=== PATIENT | male | born 1995 | race Caucasian/White ===

== ENCOUNTER 2017-06-13 13:12 | Emergency (ER) | payer SELFPAY ==
[2017-06-13 13:13] VITALS: BP 163/84; PULSE 81; RESP 18; TEMP 36.3; O2SAT 98; BMI 35.2
[2017-06-13] MEDS: Ondansetron 8 MG Tablet PO (14:40)
--- NOTE | 2017-06-13 15:11 | ED.VISSUMM ---
- ER Visit Summary Date of Service: 06/13/17 Chief Complaint: [Nausea vomiting] History of Present Illness: The patient is a 22 M [who presents the emergency department with nausea and vomiting. It started at 4 AM in the morning. She had several episodes. He has had some loose stool but no diarrhea. His girlfriend and 2 other family members have similar illness. He denies any abdominal pain no fevers or chills no other associated symptoms.] Physical Examination: [] Blood pressure elevated 163/84 other vitals within normal limits WN WD NAD PERRL EOMI MMM NECK supple and nontender, no masses RRR no murmur rub or gallop, no peripheral edema, symmetric radial pulses CTAB no respiratory distress ABDOMEN is soft and nontender, normal bowel sounds, no distension, no rebound or guarding SKIN is warm and dry no rashes Alert and Oriented x3, CN II-XII in tact, no motor or sensory deficits, gait normal No lymphadenopathy Test Results: [] Emergency Department Course and Treatment: [Patient was given oral Zofran by his choice. He did not want an IV. He was feeling much better. He was tolerating fluids. He will be given a prescription for Zofran a work excuse for today and will follow up with a primary physician. He understands reasons for which to return to the emergency department] Treatment Plan: [] Disposition: [Discharge] Impression: [Vomiting] This note was generated with [employer] dictation software. It may contain incorrect words, spelling, and punctuation that were not noted in review of the chart prior to signing ED Disposition - Plan for ED Patient: Chief Complaint: Nausea/Vomiting Referrals: Care Physician,No Primary [Primary Care Provider] -
--- NOTE | 2017-06-13 15:14 | ED.DEP ---
ED Disposition - Plan for ED Patient: Chief Complaint: Nausea/Vomiting Instructions: ED Nausea Vomiting Prescriptions: Ondansetron [Zofran Odt] 4 mg PO Q8H PRN PRN #10 tablet PRN Reason: Nausea Referrals: Elvira Souza MD [STAFF PHYSICIAN] - 3-5 Days
[2017-06-13 15:24] VITALS: BP 137/82; PULSE 70; RESP 16; O2SAT 98
== END 2017-06-13 15:24 | disposition home or self-care (01) ==
LOC: ED 14:26
PROVIDERS: Emergency Provider Emergency Medicine
DX: R11.2 Nausea with vomiting, unspecified (principal)
CPT/HCPCS: 99283

== ENCOUNTER 2017-07-28 07:18 | Emergency (ER) | payer SELFPAY ==
[2017-07-28 07:20] VITALS: BP 132/88; PULSE 98; RESP 17; TEMP 37.1; O2SAT 98; BMI 38.2
--- NOTE | 2017-07-28 07:39 | ED.VISSUMM ---
- ER Visit Summary Date of Service: 07/28/17 Chief Complaint: Vomiting blood History of Present Illness: The patient is a 22 M with no primary care physician. He reports that he had 3 episodes of emesis yesterday. Reports that on each of these episodes there were multiple times that he threw up. States on the first episode he threw up once and there was no blood. The second time he vomited there was a small amount of bright red blood. The second and third episodes there was no blood. Reports that this morning he threw up once and there was a large amount of blood. States that he believes it would have filled his hands. Patient reports that he has a stabbing continuous left upper quadrant pain and 6 out of 10 at worst and 410 currently. Is worsened by nothing relieved by nothing. His last bowel movement yesterday. He denies any blood in his stools. No melena. Patient reports he had a similar episode last fall with a Suma-Llanos tear. Physical Examination: Vitals: Stable. Afebrile. General: Well-nourished and well-developed. Head: Normocephalic atraumatic. Neck: Supple, no lymphadenopathy. No JVD. Nontender. Cardiovascular: Regular rate and rhythm. No murmurs. Respiratory: No respiratory distress. Clear to auscultation bilaterally. Abdominal: Soft, nontender, nondistended, normal bowel sounds. No guarding, rebound, or peritoneal signs. Back: Nontender. Extremities: Nontender, no edema. Skin: Normal color, no rash. Neurologic: Alert and oriented ?3. Cranial nerves II through XII are intact. Normal strength and sensation. Psych: Normal affect. Test Results: CBC is remarkable for monocytes of 13. Chem-7 is marked for chloride of 109 calcium 8.4. Of note his BUN is 14. Coags are normal. Emergency Department Course and Treatment: Patient had an IV placed. He was given a liter of normal saline, Zofran, and Pepcid IV. He refused an NG tube. He is resting comfortably. He has had no vomiting while here. He is also had no diarrhea. Treatment Plan: Patient will be discharged with Zantac and Zofran. Instructed to [facility] in 3-5 days if not improving. Return to the emergency department for any worsening symptoms. Disposition: To home in improved and stable condition. Impression: 1. Suma-Llanos tear. 2. Vomiting. This note was generated with [employer] dictation software. It may contain incorrect words, spelling, and punctuation that were not noted in review of the chart prior to signing ED Disposition - Plan for ED Patient: Chief Complaint: GI Bleed Instructions: Suma-Llanos Tear Prescriptions: Ondansetron [Zofran Odt] 4 mg PO Q8H PRN PRN #10 tablet PRN Reason: Nausea Ranitidine [Zantac] 300 mg PO DAILY #30 tablet Referrals: Franchesca Freitas [NON-STAFF] - 3-5 Days if not improving
[2017-07-28] MEDS: 0.9% Normal Saline 1,000 ML 1000 ML IV (07:53)
[2017-07-28] MEDS: Ondansetron 4 MG/2 ML Vial IV (07:59)
[2017-07-28 08:02] LABS: Absolute Lymphocyte Count 1.34 X10^3/ul (0.83-4.51); Absolute Neutrophil Count 3.4 X10^3/uL (2.0-7.7); Basophil# 0.04 X10^3/uL; Basophil% 0.7 % (0-1); Eosinophil# 0.07 X10^3/uL; Eosinophils% 1.3 % (0-5); Hematocrit 46.5 % (40-54); Hemoglobin 16.3 g/dl (13.0-16.5); Lymphocyte # 1.34 X10^3/ul (4.0); Mean Corp Hgb Conc 35.1 g/gl (32-36); Mean Corpuscular Hgb 30.8 pg (27.0-32.0); Mean Corpuscular Volume 87.7 fL (80-94); Mean Platelet Vol. 9.9 fl (6.2-12.0); Monocyte# 0.73 X10^3/uL; Monocyte% 13.1 % (0-10); Neutrophil % 60.7 % (47-70); POSITIVE COUNT NO; POSITIVE DIFFERENTIAL NO; POSITIVE MORPHOLOGY NO; Platelet Count 182 K/mm3 (150-450); RBC Distribution Width CV 12.3 % (11.6-14.6); RBC Distribution Width SD 39.6 fl (35.1-43.9); White Blood Count 5.6 K/mm3 (4.4-11.0)
[2017-07-28 08:12] LABS: Anion Gap 7 (5-15); BUN 14 mg/dL (7-18); BUN/Creat Ratio 14.1 RATIO (10-20); Calcium,Total 8.4 mg/dL (8.5-10.1); Chloride 109 mmol/L (98-107); EST Glomerular Filtration Rate 98 mL/min (>60); Est Glom Filt Rate - Afr Amer 118 mL/min (>60); Estimated Creatinine Clearance 113.91 ml/min; Glucose 106 mg/dL (74-106); Potassium 3.8 mmol/L (3.5-5.1); Sodium Level 140 mmol/L (136-145)
[2017-07-28 08:13] LABS: Partial Thromboplast Time 29.2 Seconds (24.1-36.2); Prothrombin Time (Protime)PT. 13.5 SECONDS (11.7-14.9)
[2017-07-28 09:21] VITALS: BP 107/90; PULSE 76; RESP 16; O2SAT 99
== END 2017-07-28 09:22 | disposition home or self-care (01) ==
LOC: ED 08:09
PROVIDERS: Emergency Provider Emergency Medicine
DX: K22.6 Gastro-esophageal laceration-hemorrhage syndrome (principal); R11.10 Vomiting, unspecified
CPT/HCPCS: 80048; 85025; 85610; 85730; 96365; 96366; 96375; 99283; J7030; J2405; J3490

== ENCOUNTER 2017-07-29 14:15 | Emergency (ER) | payer SELFPAY ==
[2017-07-29 14:16] VITALS: BP 148/88; PULSE 69; RESP 18; TEMP 35.8; O2SAT 98; BMI 38.9
--- NOTE | 2017-07-29 15:10 | RAD_ITS ---
STUDY: X-RAY - ACUTE ABDOMINAL SERIES REASON FOR EXAM: Male, 22 years old. VOMITING, UNABLE TO KEEP ANYTHING DOWN TECHNIQUE: Single view of the chest. Supine, erect, and decubitus view(s) of the abdomen were obtained. COMPARISON: None. FINDINGS: The lungs are clear and expanded. Normal size heart. Normal mediastinum and shanel. Normal visualized pulmonary arteries. Normal visualized aortic arch and descending thoracic aorta. There is a non-specific bowel gas pattern. The soft tissue structures of the abdomen and pelvis are unremarkable. Normal visualized osseous structures. RAD/Acute Abdomen Inc Chest IMPRESSION: Normal x-ray examination of the chest, abdomen, and pelvis. Electronically Signed: Ammy Brown MD at 15:35 EDT Tel , Service support ,
--- NOTE | 2017-07-29 15:11 | ED.DCSUM_ITS ---
- ER Visit Summary Date of Service: 07/29/17 Chief Complaint: Vomiting History of Present Illness: The patient is a 22 M with no significant medical history presents to the emergency department one episode of vomiting. Patient was actually seen here yesterday. At that time, he was diagnosed with Suma- Llanos tear because he did have some blood with his emesis. He did have labs done which were unremarkable. He was treated symptomatically with Zofran. He states that yesterday morning when he got home, he began to eat normally. He states that he ate deviled eggs, a Pradip sandwich, and other things. When he woke this morning he was nauseated again and vomited. He was concerned because it seemed like everything that he ate yesterday came up in his emesis. He did move his bowels over the past 24 hours. He denies any history of inflammatory bowel disease. He states he did have a hernia repair at 2 years old, but no other abdominal surgery. He has no history of bowel obstruction. He states his nausea is actually better because he did take his Zofran. He has had resolution of his pain. Physical Examination: Vital signs reviewed General: Well-nourished, well-developed Head: Normocephalic, atraumatic Eyes: Pupils equal and reactive, extraocular muscles intact Neck, supple, no lymphadenopathy Heart: Regular rate and rhythm Respiratory: No distress, clear bilaterally Abdomen: Soft, nontender, nondistended, no peritoneal signs Back: Nontender Extremities: Nontender, no edema, no cords Skin: Normal color no rash Neuro: Alert and oriented, no focal or lateralizing deficits Test Results: [] Emergency Department Course and Treatment: The patient has a benign abdomen. I did obtain plain films. These are unremarkable. He has no evidence of obstruction. There is some increased stool burden. I am unsure if this is more of a slow transit process. Again, he has no tenderness. I am going to treat the patient with magnesium citrate and Colace. He will continue Zofran as needed. The patient will be discharged home, return with any worsening symptoms. Treatment Plan: [] Disposition: Discharge Impression: 1. Vomiting-resolved This note was generated with [employer] dictation software. It may contain incorrect words, spelling, and punctuation that were not noted in review of the chart prior to signing ED Disposition - Plan for ED Patient: Chief Complaint: Nausea/Vomiting Instructions: ED Nausea Vomiting Prescriptions: Docusate Sodium [Colace] 100 mg PO DAILY #20 cap Referrals: Care Physician,No Primary [Primary Care Provider] -
[2017-07-29] MEDS: Ondansetron ODT 4 MG Tablet PO (15:25)
[2017-07-29 15:59] VITALS: PULSE 90; RESP 14; O2SAT 97
== END 2017-07-29 16:00 | disposition home or self-care (01) ==
LOC: ED 15:07
PROVIDERS: Emergency Provider Emergency Medicine
DX: R11.2 Nausea with vomiting, unspecified (principal); K59.00 Constipation, unspecified
CPT/HCPCS: 74022; 99282

== ENCOUNTER 2018-03-26 16:41 | Emergency (ER) | payer MEDICAID, SELFPAY ==
[2018-03-26 16:41] VITALS: BMI 35.2
[2018-03-26 16:42] VITALS: BP 161/96; PULSE 81; RESP 18; TEMP 36.3; O2SAT 100; BMI 37.4
[2018-03-26 17:02] LABS: Bacteria 0 SEEN /hpf (None Seen); Mucous, Urine 0 SEEN /hpf (<or=2+); Red Blood Cells-Urine 0 SEEN /hpf (0-5); Squamous Epithelial Cells - UA 0 SEEN /hpf (0-5); White Blood Cells 0 SEEN /hpf (0-5)
[2018-03-26 17:07] LABS: Color, Urine Straw (Yellow); Glucose, Dipstick Normal (Normal); Ketone-Dipstick Negative (Negative); Leukocyte Esterase-Dipstick Negative /ul (Negative); Nitrite-Dipstick Negative (Negative); Occult Blood-Urine 50 /ul (Negative); Protein-Dipstick Negative (Negative); Specific Gravity, Urine 1.005 (1.002-1.030); Urine Bilirubin Dipstick Negative (Negative); Urine Clarity Clear (Clear); Urine Urobilinogen Normal (Normal)
--- NOTE | 2018-03-26 17:09 | ED.VISSUMM ---
- ER Visit Summary Date of Service: 03/26/18 Chief Complaint: Dysuria History of Present Illness: The patient is a 23 M who began having dysuria, frequency and urgency yesterday now he has some suprapubic pain. He has no back pain. No hematuria. He has no fever or chills. He denies any testicular pain. No pain with bowel movements. No rectal pain. Physical Examination: Not appear in acute distress. He is laying in bed comfortable. Moist mucous membranes, no obvious facial deformity No C-spine tenderness supple neck. Regular rate and rhythm without any obvious murmurs Clear lungs bilaterally speaking in full sentences without any obvious respiratory distress Abdomen soft with some suprapubic pain, no guarding or rebound. No CVA tenderness. Moves all extremities without any difficulty or pain. Skin does not show any obvious rashes or lesions, no trauma. Alert oriented ?3 with no gross focal deficit Emergency Department Course and Treatment: Patient is found to have a 3 mm right UVJ stone. He really did not require much analgesia in the ED I gave him Toradol. I will send him home with Naprosyn and Norflex. He is likely to pass this on his own I will refer him to urology since this is a second kidney stone. Discharge in stable condition Impression: Nephrolithiasis with colic This note was generated with [employer] dictation software. It may contain incorrect words, spelling, and punctuation that were not noted in review of the chart prior to signing ED Disposition - Plan for ED Patient: Disposition: Home or Assisted Living Chief Complaint: Complaint Instructions: Kidney Stone (Urine) Prescriptions: Naproxen [Naprosyn] 500 mg PO BID PRN #20 tab Tamsulosin HCl [Flomax] 0.4 mg PO DAILY #5 cap Referrals: Dong Blanco MD [STAFF PHYSICIAN] - 3-5 Days
[2018-03-26 17:12] VITALS: BP 140/89
--- NOTE | 2018-03-26 17:22 | CT_ITS ---
STUDY: CT ABDOMEN AND PELVIS WITHOUT CONTRAST REASON FOR EXAM: Male, 23 years old. Pain in the lower pelvic area with dysuria. History of multiple kidney stones. RADIATION DOSAGE (If Supplied By Facility): CTDIvol = ( 21.99 ) mGy, DLP = ( 1252.90 ) mGycm TECHNIQUE: Transaxial images were obtained from the dome of the diaphragm to the symphysis pubis without oral contrast, and without intravenous contrast. Sagittal and coronal images were reconstructed. Individualized dose optimization techniques were used for this CT. COMPARISON: CT abdomen and pelvis 11/06/2015 FINDINGS: Body wall soft tissues: No acute process. Osseous structures: No acute process. Inferior chest: Clear lung bases. Normal distal esophagus and cardiac base. Hepatobiliary: Normal liver, gallbladder, biliary tree and common duct. Pancreas: No acute process. Spleen: Normal. Adrenal glands: Normal. Urogenital: Normal left kidney with no retained calculi. Normal left collecting system and ureter. On the right, there are 2 tiny nonobstructing calyceal calculi, the largest measuring about 2 or 3 mm. There is minimal right hydronephrosis and hydroureter. There is a 3 mm calculus at the ureterovesical junction. Normal urinary bladder, prostate and seminal vesicles. Pelvic floor and sidewalls and retroperitoneum: No mass or adenopathy. Vasculature: No acute process. Stomach: No acute process. Small bowel and mesentery: No acute process. Large bowel: Normal appendix. Normal large bowel and rectum. Free fluid or free air: None. CT/Abdomen/Pelvis without Cont IMPRESSION: Acute urinary calculus passage on the right. There is a 3 mm calculus at the right ureterovesical junction. There are 2 tiny retained nonobstructing calyceal calculi of the right kidney. There are no observed calculi of the left kidney or ureter. Electronically Signed: Kennedy Hernandes, at 18:48 EST Tel , Service support ,
[2018-03-26 19:18] VITALS: BP 147/89; PULSE 75; RESP 16; O2SAT 97
[2018-03-26] MEDS: Ketorolac 30 MG/ML Syringe IM (19:19)
[2018-03-26] MEDS: HYDROcodone Bitartrate/Apap 5/325 Tablet PO (19:33)
[2018-03-26 19:38] VITALS: BP 155/97; PULSE 75; RESP 16; O2SAT 99
== END 2018-03-26 19:40 | disposition home or self-care (01) ==
PROVIDERS: Emergency Provider Emergency Medicine
DX: N20.0 Calculus of kidney (principal); R10.84 Generalized abdominal pain; Z87.442 Personal history of urinary calculi
CPT/HCPCS: 74176; 81001; 96372; 99282

== ENCOUNTER 2018-03-27 18:15 | Emergency (ER) | payer MEDICAID, SELFPAY ==
[2018-03-26 16:42] VITALS: BMI 37.4
[2018-03-27 18:16] VITALS: BP 140/89; PULSE 68; RESP 15; TEMP 36.4; O2SAT 98; BMI 37.1
--- NOTE | 2018-03-27 18:35 | ED.VISSUMM ---
- ER Visit Summary Date of Service: 03/27/18 Chief Complaint: Nausea and vomiting History of Present Illness: The patient is a 23 M who was seen in the ED last night for a kidney stone. Patient states he felt well when he went home last night, 8, and went to bed. He woke this morning with nausea and vomiting and this is persisted throughout the day. He states he does still have some flank pain but it is overall improved. The pain is moved in the right groin line down to the testicle and he believes he likely passed the stone. He denies diarrhea. He has not had fever or chills. Physical Examination: Vital signs are unremarkable. Patient is sitting upright in bed. He is in no acute distress. Head neck examination is unremarkable. Heart is regular rate and rhythm. Lung sounds are clear. Abdomen is soft and nontender. Hypoactive bowel sounds are noted throughout. Test Results: CBC reveals a white count of 13.2 with 76% neutrophils. Chemistry studies reveal a BUN of 24 and a creatinine of 1.84. There are no prior studies available for comparison. Emergency Department Course and Treatment: Patient was given IV fluids, Zofran, morphine. On repeat evaluation he feels significantly improved. He is tolerating ice chips. He is given a total of 2 L of fluid secondary to his elevation in creatinine. Patient be given a prescription for Zofran at home and he has pain meds were written for him last night. Treatment Plan: [] Disposition: Discharge Impression: Vomiting, improved This note was generated with [employer] dictation software. It may contain incorrect words, spelling, and punctuation that were not noted in review of the chart prior to signing ED Disposition - Plan for ED Patient: Chief Complaint: Nausea/Vomiting Referrals: Care Physician,No Primary [Primary Care Provider] -
[2018-03-27] MEDS: 0.9% Normal Saline 1,000 ML 1000 ML IV (18:45)
[2018-03-27] MEDS: Ondansetron 4 MG/2 ML Vial IV (18:45)
[2018-03-27 19:08] LABS: Absolute Neutrophil Count 10.1 X10^3/uL (2.0-7.7); Basophil# 0.03 X10^3/uL; Basophil% 0.2 % (0-1); Eosinophil# 0.06 X10^3/uL; Eosinophils% 0.5 % (0-5); Hematocrit 44.3 % (40-54); Hemoglobin 15.5 g/dl (13.0-16.5); Lymphocyte % 12.9 % (19-41); Mean Corpuscular Hgb 30.6 pg (27.0-32.0); Mean Corpuscular Volume 87.5 fL (80-94); Monocyte% 9.9 % (0-10); Neutrophil # 10.07 X10^3/uL (2.7-7.7); Neutrophil % 76.3 % (47-70); Platelet Count 201 K/mm3 (150-450); RBC Distribution Width CV 11.9 % (11.6-14.6); RBC Distribution Width SD 37.8 fl (35.1-43.9); Red Blood Count 5.06 M/mm3 (4.6-6.2); White Blood Count 13.2 K/mm3 (4.4-11.0)
[2018-03-27 19:09] LABS: POSITIVE COUNT NO; POSITIVE DIFFERENTIAL NO; POSITIVE MORPHOLOGY NO
[2018-03-27 19:11] LABS: Anion Gap 9 (5-15); BUN 24 mg/dL (7-18); Calcium,Total 8.8 mg/dL (8.5-10.1); Chloride 103 mmol/L (98-107); Creatinine, Serum 1.84 mg/dL (0.70-1.30); EST Glomerular Filtration Rate 48 mL/min (>60); Est Glom Filt Rate - Afr Amer 58 mL/min (>60); Estimated Creatinine Clearance 67.36 ml/min; Glucose 105 mg/dL (74-106); Potassium 3.7 mmol/L (3.5-5.1); Sodium Level 137 mmol/L (136-145)
[2018-03-27] MEDS: 0.9% Normal Saline 1,000 ML 999 ML IV (19:33)
[2018-03-27 19:43] VITALS: BP 155/94; PULSE 65; RESP 17; O2SAT 97
[2018-03-27] MEDS: Morphine 4 MG/ML Syringe IV (19:50)
--- NOTE | 2018-03-27 20:42 | ED.DEP ---
ED Disposition - Plan for ED Patient: Disposition: Home or Assisted Living Chief Complaint: Nausea/Vomiting Instructions: ED Nausea Vomiting Prescriptions: Ondansetron [Zofran Odt] 4 mg PO Q8H PRN PRN #10 tablet PRN Reason: Nausea Referrals: Boo Armstrong MD [STAFF PHYSICIAN] - As Needed
[2018-03-27 20:58] VITALS: BP 160/95; PULSE 67; RESP 17; O2SAT 98
--- NOTE | 2018-03-27 20:59 | ED.RN ---
pt given written and verbal discharge instructions and home going prescriptions. pt verbalizes understanding. pt educated not to drive for 6 hours after having morphine. pt reports his fiance's mom is coming to pick him up. pt iv d/c and covered with 2x2 gauze and paper tape. pt educated on the pharmacies that are currently open. pt denies any other questions.
== END 2018-03-27 21:02 | disposition home or self-care (01) ==
PROVIDERS: Emergency Provider Emergency Medicine
DX: R11.2 Nausea with vomiting, unspecified (principal); R10.31 Right lower quadrant pain; Z87.442 Personal history of urinary calculi
CPT/HCPCS: 80048; 85025; 96361; 96374; 96375; 99283; J7030; A4216; J2405

== ENCOUNTER 2018-11-15 01:17 | Emergency (ER) | payer OTHER, SELFPAY ==
[2018-11-15 01:18] VITALS: BP 148/78; PULSE 76; RESP 17; TEMP 36.9; O2SAT 97; BMI 37.5
--- NOTE | 2018-11-15 01:45 | ED.VISSUMM ---
- ER Visit Summary Date of Service: 11/15/18 Chief Complaint: Dental pain History of Present Illness: The patient is a 23 M who presents with dental pain. He complains of left-sided dental and facial pain which is progressed over the last 2 weeks. He does have a history of prior similar symptoms. He complains of pain from the base of his ear all the way down to below his jaw. He denies any fevers chest pain shortness of breath nausea vomiting. No jaw or facial swelling. Physical Examination: Afebrile vitals unremarkable Patient does have focal dental decay of the left mandibular second molar no focal abscess amenable to incision and drainage no facial or jaw swelling no trismus clear speech he does have tenderness on percussion of the left mandibular second molar Test Results: Not indicated Emergency Department Course and Treatment: Patient was given penicillin here as well as a prescription for the same. He was given a list of dental clinics for outpatient follow-up. He understands to return for new or worsening symptoms. The patient was discharged. Treatment Plan: [] Disposition: Discharge Impression: Odontalgia This note was generated with [employer] dictation software. It may contain incorrect words, spelling, and punctuation that were not noted in review of the chart prior to signing ED Disposition - Plan for ED Patient: Instructions: Dental Pain Prescriptions: Penicillin V Potassium 500 mg PO 4X/DAY #40 tab Prescription Printed Referrals: Care Physician,No Primary [Primary Care Provider] -
[2018-11-15] MEDS: Penicillin Vk 250 MG Tablet 500 MG PO (02:03)
== END 2018-11-15 02:06 | disposition home or self-care (01) ==
LOC: ED 01:56
PROVIDERS: Emergency Provider Emergency Medicine
DX: K02.9 Dental caries, unspecified (principal); K08.89 Other specified disorders of teeth and supporting structures
CPT/HCPCS: 99283

== ENCOUNTER 2020-03-09 16:51 | Emergency (ER) | payer BC, SELFPAY ==
[2020-03-09 16:51] VITALS: BP 156/104; PULSE 104; RESP 28; TEMP 36.7; O2SAT 96; BMI 36.6
[2020-03-09 16:55] VITALS: BP 156/104; PULSE 104; RESP 28; TEMP 36.7; O2SAT 96
--- NOTE | 2020-03-09 17:28 | EKG12_ITS ---
Test Reason : Blood Pressure : / mmHG Vent. Rate : 090 BPM Atrial Rate : 090 BPM P-R Int : 148 ms QRS Dur : 088 ms QT Int : 352 ms P-R-T Axes : 039 024 011 degrees QTc Int : 430 ms Normal sinus rhythm with sinus arrhythmia Normal ECG Confirmed by TYLER MARTINEZ, SHASHANK ([id number]), restaurant expeditor LANG HURST ([id number]) on 03/11/2020 11:30:23 AM Referred By: ESTELLA Confirmed By:SHASHANK SCOTT MD
[2020-03-09 17:54] VITALS: O2SAT 98
[2020-03-09 17:54] LABS: Absolute Lymphocyte Count 0.59 X10^3/uL (0.83-4.51); Absolute Neutrophil Count 5.5 X10^3/uL (2.0-7.7); Basophil# 0.01 X10^3/uL; Basophil% 0.2 % (0-1); Hematocrit 48.7 % (40-54); Lymphocyte # 0.59 X10^3/ul (4.0); Lymphocyte % 9.2 % (19-41); Mean Corp Hgb Conc 32.9 g/dL (32-36); Mean Corpuscular Volume 91.4 fL (80-94); Mean Platelet Vol. 10.1 fl (6.2-12.0); Monocyte# 0.24 X10^3/uL; Monocyte% 3.8 % (0-10); NRBC Flagged by Analyzer 0 % (0-5); Neutrophil # 5.54 X10^3/uL (2.7-7.7); Neutrophil % 86.5 % (47-70); POSITIVE DIFFERENTIAL YES; Platelet Count 174 K/mm3 (150-450); RBC Distribution Width CV 11.9 % (11.6-14.6); RBC Distribution Width SD 39.9 fl (35.1-43.9); Red Blood Count 5.33 M/mm3 (4.6-6.2); White Blood Count 6.4 K/mm3 (4.4-11.0)
[2020-03-09 18:01] LABS: Differential Indicated SCAN CRITERIA MET
[2020-03-09] MEDS: 0.9% Normal Saline 1,000 ML 1000 ML IV (18:04)
[2020-03-09] MEDS: Ketorolac 15 MG/ML Vial IV (18:04)
--- NOTE | 2020-03-09 18:10 | RAD_ITS ---
STUDY: X-RAY CHEST REASON FOR EXAM: Male, 24 years old. COUGH, SOB, AND FEVER X 1 1/2 WEEKS TECHNIQUE: Single frontal view of the chest. COMPARISON: 07/29/2017 FINDINGS: Right perihilar pneumonia. There is no demonstrated pleural abnormality. Normal size heart. Normal visualized pulmonary arteries. Normal visualized aortic arch and descending thoracic aorta. Normal visualized thoracic spine. Normal visualized ribs, clavicles, and shoulders. There is no demonstrated abnormality of the visualized soft tissue structures of the upper abdomen. RAD/Chest 1 View (Portable) IMPRESSION: Right perihilar pneumonia. Electronically Signed: Og Pineda MD at 18:30 EST Tel , Service support ,
[2020-03-09 18:11] LABS: D-Dimer Quantitative (DVT/PE) 0.33 FEU/ug/m (0.27-0.49)
[2020-03-09 18:14] LABS: AST(SGOT) 30 U/L (15-37); Alanine Aminotransfer ALT/SGPT 64 U/L (16-61); Alkaline Phosphatase 59 U/L (45-117); Anion Gap 6 (5-15); BUN 15 mg/dL (7-18); BUN/Creat Ratio 10.3 RATIO (10-20); Chloride 109 mmol/L (98-107); Creatinine, Serum 1.46 mg/dL (0.70-1.30); EST Glomerular Filtration Rate 62 mL/min (>60); Est Glom Filt Rate - Afr Amer 75 mL/min (>60); Estimated Creatinine Clearance 84.16 ml/min; Globulin 4.2 g/dL (2.2-4.2); Glucose 117 mg/dL (74-106); Potassium 4.3 mmol/L (3.5-5.1); Protein, Total 8.2 g/dL (6.4-8.2); Sodium Level 140 mmol/L (136-145)
--- NOTE | 2020-03-09 19:02 | ED.DCSUM_ITS ---
History of Present Illness Chief Complaint: Shortness of Breath Informant: Patient Onset: Days Timing: Continuous Associated Symptoms: Bloody Sputum, Chills, Cough, Fever, Sore throat Narrative: Patient is a 24-year-old male presenting from urgent care for worsening respiratory symptoms. Patient's had COVID/viral symptoms for the past 10 days. He has had multiple family members at home that tested positive for Covid but his test was negative. He was retested today at urgent care. He continued to have a productive cough that was initially chunky brown is progressed to bloody/blood-streaked today. He is continued to have pain in his upper chest and feels congested and short of breath. He has some nausea but no vomiting. He has had intermittent diarrhea. He denies any swelling of his legs. His last fever was about 4 days ago and his temperature yesterday was 100 ?F. No swelling of his legs. No history of DVT or PE. No other complaints at this time. Recent Illness/Hospitalization: Yes - Multiple sick contacts with Covid at home Past Medical History - Allergies and Home Meds Allergies/Adverse Reactions: Allergies No Known Allergies Allergy (Verified 11/15/18 01:17) Primary Care Physician: Care Physician,No Primary [Primary Care Provider] - Past Medical History: - - Kidney stone Surgical History: - - Right wrist surgery, orchiopexy Lives: Spouse/ Significant Other, With Family Smoking Status: Never smoker Review of Systems General: Reports: Chills, Fever, Malaise. Denies: Sweats Eyes: Denies: Visual changes - bilaterally, Diplopia ENT: Reports: Sore throat. Denies: Rhinorrhea Cardiovascular: Denies: Chest pain, Palpitations Respiratory: Reports: Dyspnea, Cough, Sputum. Denies: Dyspnea on exertion Gastrointestinal: Reports: Nausea, Diarrhea. Denies: Abdominal pain, Vomiting, Melena, Hematochezia Genitourinary: Denies: Dysuria, Hematuria, Frequency Musculoskeletal: Reports: Myalgias. Denies: Back pain, Extremity Pain Skin: Denies: Rash, Wounds Neurological: Denies: Headache, Weakness, Numbness Physical Exam Vital Signs/Narrative: Vital Signs Temp Pulse Resp BP Pulse Ox 03/09/20 16:55 98.1 F 104 H 28 H 156/104 H 96 03/09/20 16:51 98.1 F 104 H 28 H 156/104 H 96 Inital Vital Signs reviewed: Yes General: Well nourished, Well developed, No Acute Distress Head: Normocephalic, Atraumatic Eyes: Perrl, EOMI ENT: No rhinorrhea, Dry mucous membranes Neck: Supple, Nontender Cardiovascular: Regular rate, Regular rhythm, No murmurs Respiratory: No distress, Chest nontender, Diminished. Negative for: Rales, Rhonchi, Wheezing, Decreased Air Movement Abdomen: Soft, Nontender, Nondistended, Normal bowel sounds. Negative for: Guarding, Rebound tenderness Back: Nontender, Normal Inspection Extremities: Nontender, No edema Skin: Normal color, No rash Neurological: Alert, Oriented x3, Cranial nerves II-XII grossly intact, Normal Strength, Normal Sensation Psychological: Normal affect, Normal Mood Diagnostic/Tx/Re-eval Chest X-Ray - ED: 1 View, Read by ED Physician, Read by Radiologist, Right Infiltrate Clinical Impression(s) from Imaging Studies Chest X-Ray 03/09/20 18:10 IMPRESSION: Right perihilar pneumonia. Electronically Signed: Og Pineda MD at 18:30 EST Tel , Service support , Laboratory Data 03/09/20 03/09/20 03/09/20 17:40 17:40 17:40 WBC 6.4 RBC 5.33 Hgb 16.0 Hct 48.7 MCV 91.4 MCH 30.0 MCHC 32.9 RDW Std Deviation 39.9 RDW Coeff of Tiarra 11.9 Plt Count 174 MPV 10.1 Immature Gran % (Auto) 0.300 Neut % (Auto) 86.5 H Lymph % (Auto) 9.2 L [place] % (Auto) 3.8 Eos % (Auto) 0.0 Baso % (Auto) 0.2 Absolute Neuts (auto) 5.5 Absolute Lymphs (auto) 0.59 L Nucleated RBC % 0 D-Dimer Quant (PE/DVT) Sodium 140 Potassium 4.3 Chloride 109 H Carbon Dioxide 25.0 Anion Gap 6 BUN 15 Creatinine 1.46 H Estim Creat Clear Calc 84.16 Est GFR (MDRD) Af Amer 75 Est GFR (MDRD) Non-Af 62 BUN/Creatinine Ratio 10.3 Glucose 117 H Lactic Acid 2.0 Calcium 9.0 Total Bilirubin 0.40 AST 30 ALT 64 H Alkaline Phosphatase 59 Troponin I < 0.015 Total Protein 8.2 Albumin 4.0 Globulin 4.2 Albumin/Globulin Ratio 1.0 03/09/20 17:40 WBC RBC Hgb Hct MCV MCH MCHC RDW Std Deviation RDW Coeff of Tiarra Plt Count MPV Immature Gran % (Auto) Neut % (Auto) Lymph % (Auto) [place] % (Auto) Eos % (Auto) Baso % (Auto) Absolute Neuts (auto) Absolute Lymphs (auto) Nucleated RBC % D-Dimer Quant (PE/DVT) 0.33 Sodium Potassium Chloride Carbon Dioxide Anion Gap BUN Creatinine Estim Creat Clear Calc Est GFR (MDRD) Af Amer Est GFR (MDRD) Non-Af BUN/Creatinine Ratio Glucose Lactic Acid Calcium Total Bilirubin AST ALT Alkaline Phosphatase Troponin I Total Protein Albumin Globulin Albumin/Globulin Ratio - Rhythm Strip Rhythm Strip: Sinus Rhythm Rate: 90 Ectopy: None - EKG Initial EKG Interpretation: Sinus Rhythm, - - Normal sinus rhythm at a rate of 90Normal axisNormal intervalsNormal ST segments - Medical Decision Making Evaluated for worsening respiratory symptoms in the setting of multiple family numbers with coronavirus. He was retested today but initial test was negative. Patient is mildly tachycardic and tachypneic on arrival but does have dry mucous membranes. He appears mildly dehydrated. He does not have concerning breath sounds. He is breathing easily. Chest x-ray does show a right perihilar infiltrate. Likely he has secondary pneumonia which is why his symptoms are worsening instead of improving. He is given IV fluids and doxycycline emergency room. He does not have a leukocytosis and is not hypoxic. I think he still good candidate for outpatient follow-up. Patient is counseled on signs and symptoms requiring return to the emergency room. Patient verbalizes agreement and understand this plan. Patient discharged home in stable and improved condition. ED Disposition - Plan for ED Patient: Disposition: Home or Assisted Living Diagnosis: Right middle lobe pneumonia Instructions: ED PNEUMONITIS Adult Prescriptions: Doxycycline 100 mg PO BID #14 cap Transmission Status: Pending to [facility]30 Referrals: Murtaza Esquivel MD [STAFF PHYSICIAN] - Additional Instructions: Plenty of fluids to prevent any dehydration. You look like you have superimposed pneumonia on your chest x-ray which is likely why you are getting worse instead of better. Alternate Tylenol and ibuprofen for pain and/or fever. Return to emergency room if you develop difficulty breathing or worsening symptoms.
[2020-03-09 19:20] VITALS: BP 129/74; PULSE 94; RESP 20; TEMP 37.2; O2SAT 96
[2020-03-09] MEDS: Doxycycline 100 MG CAPSULE PO (19:20)
[2020-03-09 21:49] LABS: Reflex Lactate? Y
== END 2020-03-09 19:39 | disposition home or self-care (01) ==
PROVIDERS: Emergency Provider Emergency Medicine
DX: J18.9 Pneumonia, unspecified organism (principal); Z87.442 Personal history of urinary calculi
CPT/HCPCS: 71045; 80053; 83605; 84484; 85025; 85379; 93005; 96361; 96374; 99283; J7030; A4216

== ENCOUNTER 2020-03-10 13:08 | Emergency (ER) | payer BC, SELFPAY ==
[2020-03-09 16:51] VITALS: BMI 36.6
[2020-03-10 13:09] VITALS: BP 145/75; PULSE 116; RESP 24; TEMP 39.4; O2SAT 94; BMI 37.8
--- NOTE | 2020-03-10 13:22 | ED.DCSUM_ITS ---
- ER Visit Summary Date of Service: 03/10/20 Chief Complaint: Shortness of breath cough, fever History of Present Illness: The patient is a 24 M who has shortness of breath, cough and fever. He has had this for 1 week. He initially tested negative at an urgent care. He returned to the urgent care yesterday for continued symptoms. He was then sent here. He had a full work-up including laboratory studies and chest x-ray. The chest x-ray had a right mild perihilar pneumonia. His D-dimer and white blood cell count were normal yesterday. He comes in today because he is not getting any better. He has been using doxycycline, Tylenol and albuterol at home. He feels weak all over. He has not checked his temperature at home. He has a history of any lung issues. He is a non-smoker. Physical Examination: Vital signs reviewed. Temperature was 102.9 ?F. HEENT exam unremarkable. Heart is tachycardic and regular rhythm without murmurs. Lungs have a very faint wheeze in the right lower lobe. Abdomen is soft and nontender. Extremities reveal no edema. Skin exam normal. Neurologic exam normal. Test Results: None performed Emergency Department Course and Treatment: Overall the patient looks well. He is mildly tachycardic and his temperature is elevated. My concern is that he may actually have the coronavirus. He was retested at the urgent care yesterday and results are still pending. I informed him that he should treat himself as if he does have a. He states that every other family member in his house is tested positive. At this point he will be treated symptomatically with Toradol and Decadron. I will give him Mucinex D to take at home. He will continue his albuterol inhaler and antibiotics. At this point his pulse ox is 96% on room air. I do not feel he meets any admission criteria at this time. Treatment Plan: [] Disposition: Discharge Impression: Pneumonia, COVID-19 concern This note was generated with [employer] dictation software. It may contain incorrect words, spelling, and punctuation that were not noted in review of the chart prior to signing ED Disposition - Plan for ED Patient: Disposition: Home or Assisted Living Instructions: ED PNEUMONITIS Adult Prescriptions: Guaifenesin/Pseudoephedrne HCl [Mucinex D ER 600-60 mg Tablet] 1 ea PO BID #14 tab.er.12h Transmission Status: Pending to [facility] Referrals: Care Physician,No Primary [Primary Care Provider] -
[2020-03-10] MEDS: dexAMETHasone 4 MG Tablet 10 MG PO (13:30)
[2020-03-10] MEDS: Ketorolac 60 MG/2 ML Vial IM (13:30)
[2020-03-10 13:31] VITALS: O2SAT 96
[2020-03-10 13:49] VITALS: BP 138/74; PULSE 99; RESP 16; O2SAT 96
== END 2020-03-10 13:50 | disposition home or self-care (01) ==
LOC: ED 13:34
PROVIDERS: Emergency Provider Emergency Medicine
DX: J18.9 Pneumonia, unspecified organism (principal); Z20.828 Contact with and (suspected) exposure to other viral communicable diseases
CPT/HCPCS: 96372; 99283

== ENCOUNTER 2021-12-09 12:47 | Emergency (ER) | payer SELFPAY ==
[2021-12-09 12:47] VITALS: BP 133/79; PULSE 97; RESP 16; TEMP 36.6; O2SAT 97; BMI 37.6
--- NOTE | 2021-12-09 12:59 | EX.ED.DYSGE1 ---
HPI History of Present Illness Chief Complaint: Abd Pain Narrative Narrative: Presents with 1 week of epigastric pain and discomfort. He has no right upper quadrant pain. He has no radiation to the back. He has no lower abdominal pain. About 2 days he started having watery diarrhea, about 8 to 9/day. He has some intermittent abdominal cramping but most of his pain is in the epigastrium. He has no nausea or vomiting with this. He has no testicular pain or urinary symptoms. No flank pain. No recent travel history no recent antibiotics, no recent camping. No recent sick contacts. PFSH PFS Home Medications doxycycline monohydrate 100 mg capsule 100 mg PO BID #14 caps 03/09/20 [Rx Last Taken Unknown] pseudoephedrine-guaifenesin ER 60 mg-600 mg tablet,extend release 12hr 1 ea PO BID ##14 03/10/20 [Rx Last Taken Unknown] dicyclomine 20 mg tablet 20 mg PO BID #10 tabs 12/09/21 [Rx Last Taken Unknown] Allergy/AdvReac Type Severity Reaction Status Date / Time No Known Allergies Allergy Verified 12/09/21 12:49 Social History Smoking Status: Never smoker ROS ROS ED ROS Narrative Past medical history: Reviewed Medications: Reviewed Social history: Noncontributory Review of systems: All systems negative except as indicated General: No fever Eyes: No visual changes ENT: No upper airway congestion, normal voice Neck: No neck pain Cardiovascular: No chest pain Respiratory: No shortness of breath or cough Gastrointestinal: As in HPI Genitourinary: No dysuria Musculoskeletal: Denies myalgias no difficulty with ambulation Skin: No rash Neurological: No memory loss, confusion or any focal weakness Psych: No recent behavioral changes Hematologic: No easy bleeding or easy bruising EXAM Physical Exam Narrative Exam Narrative: Physical exam General: Well nourished, Well developed, No Acute Distress Head: Normocephalic, Atraumatic Eyes: Conjunctiva not pale ENT: Moist mucous membranes Neck: Supple, Nontender, No lymphadenopathy Cardiovascular: Regular rate, Regular rhythm Respiratory: No distress, CTA bilaterally Abdomen: Soft, there is midline epigastric tenderness. There is no right upper quadrant pain. Patient has a negative Angel's. No lower abdominal pain no pain at McBurney's. There is no guarding or rebound. Essentially a very benign abdominal exam. Back: Nontender, Normal Inspection. Negative for: CVA tenderness Extremities: Nontender, No edema Skin: Normal color, No rash Neurological: Alert, Normal Strength, Normal Sensation Psychological: Normal affect Const Vital Signs: 12/09/21 12:47 Temperature 97.8 F Temperature Source Temporal Pulse Rate 97 Respiratory Rate 16 Blood Pressure 133/79 H Blood Pressure Mean 97 Pulse Ox 97 Oxygen Delivery Method Room Air MDM MDM MDM Narrative Medical decision making narrative: Patient's work-up is unremarkable. He appears well. He has epigastric pain and no right upper quadrant pain with a negative Angel's and normal white count and LFTs I do not believe he needs an ultrasound of his gallbladder. This is likely gastritis or some sort of GI related etiology. He appears well I will discharge him in stable condition with reassurance. Lab Data Labs: Laboratory Results - last 24 hr 12/09/21 12/09/21 13:05 13:05 WBC 6.0 RBC 5.19 Hgb 15.7 Hct 46.6 MCV 89.8 MCH 30.3 MCHC 33.7 RDW Std Deviation 38.3 RDW Coeff of Tiarra 11.7 Plt Count 212 MPV 9.8 Immature Gran % (Auto) 0.300 Neut % (Auto) 57.2 Lymph % (Auto) 31.9 [place] % (Auto) 8.6 Eos % (Auto) 1.3 Baso % (Auto) 0.7 Absolute Neuts (auto) 3.4 Absolute Lymphs (auto) 1.90 Nucleated RBC % 0 Sodium 139 Potassium 3.7 Chloride 108 H Carbon Dioxide 27.0 Anion Gap 4 L BUN 18 Creatinine 1.18 Estim Creat Clear Calc 99.27 Est GFR (MDRD) Af Amer 94 Est GFR (MDRD) Non-Af 78 BUN/Creatinine Ratio 15.3 Glucose 98 Calcium 9.2 Total Bilirubin 0.70 AST 21 ALT 55 Alkaline Phosphatase 58 Total Protein 8.0 Albumin 4.1 Globulin 3.9 Albumin/Globulin Ratio 1.1 Lipase 83 Discharge Plan Triage Chief Complaint: Abd Pain ED Provider: Adarsh Freire Dx/Rx/DC Orders Clinical Impression: Abdominal pain, Diarrhea Instructions: Abdominal Pain, ED Epigastric Pain Uncertain Cause Prescriptions: New dicyclomine 20 mg tablet 20 mg PO BID Qty: 10 0RF No Action doxycycline monohydrate 100 MG capsule 100 mg PO BID Qty: 14 0RF pseudoephedrine-guaifenesin 1 EACH tablet extended release 12 hr 1 ea PO BID Qty: 14 0RF Primary Care Provider: Care Physician,No Primary Referrals: Care Physician,No Primary [Primary Care Provider] - 3-5 Days Disposition Disposition: Home, Self Care
[2021-12-09] MEDS: 0.9% Normal Saline 1,000 ML 1000 ML IV (13:07)
[2021-12-09] MEDS: Dicyclomine 20 MG/2 ML Vial IM (13:07)
[2021-12-09 13:09] LABS: Absolute Neutrophil Count 3.4 X10^3/uL (2.0-7.7); Basophil# 0.04 X10^3/uL; Basophil% 0.7 % (0-1); Eosinophil# 0.08 X10^3/uL; Eosinophils% 1.3 % (0-5); Hematocrit 46.6 % (40-54); Hemoglobin 15.7 g/dL (13.0-16.5); Lymphocyte % 31.9 % (19-41); Mean Corp Hgb Conc 33.7 g/dL (32-36); Mean Corpuscular Hgb 30.3 pg (27.0-32.0); Mean Corpuscular Volume 89.8 fL (80-94); Mean Platelet Vol. 9.8 fl (6.2-12.0); Monocyte# 0.51 X10^3/uL; Monocyte% 8.6 % (0-10); NRBC Flagged by Analyzer 0 % (0-5); Neutrophil % 57.2 % (47-70); Platelet Count 212 K/mm3 (150-450); RBC Distribution Width CV 11.7 % (11.6-14.6); RBC Distribution Width SD 38.3 fl (35.1-43.9); Red Blood Count 5.19 M/mm3 (4.6-6.2)
[2021-12-09 13:26] LABS: ALB/GLOB Ratio 1.1 RATIO (0.9-2.4); AST(SGOT) 21 U/L (15-37); Alanine Aminotransfer ALT/SGPT 55 U/L (16-61); Albumin, Serum 4.1 g/dL (3.2-5.0); Alkaline Phosphatase 58 U/L (45-117); Anion Gap 4 (5-15); BUN 18 mg/dL (7-18); BUN/Creat Ratio 15.3 RATIO (10-20); Calcium,Total 9.2 mg/dL (8.5-10.1); Chloride 108 mmol/L (98-107); Creatinine, Serum 1.18 mg/dL (0.70-1.30); EST Glomerular Filtration Rate 78 mL/min (>60); Est Glom Filt Rate - Afr Amer 94 mL/min (>60); Estimated Creatinine Clearance 99.27 ml/min; Globulin 3.9 g/dL (2.2-4.2); Glucose 98 mg/dL (74-106); Lipase 83 U/L (73-393); Potassium 3.7 mmol/L (3.5-5.1); Sodium Level 139 mmol/L (136-145)
--- NOTE | 2021-12-09 13:43 | CM.ED ---
KENIA Note KENIA met with patient as per tracker patient has no PCP and a review notes patient has no insurance. KENIA provided patient with the medicaid application and information about [facility]. Patient stated that he and his significant other are getting via [employer] on the so patient will be able to get the family plan through their employer. Patient said that they want the family plan for himself, his significant other and child. Patient was also provided with [facility] Healthcare Directory. No other issues or concerns voiced. KENIA remains available Alisosn BALDWIN
[2021-12-09 15:18] VITALS: PULSE 84; RESP 16; O2SAT 99
== END 2021-12-09 15:19 | disposition home or self-care (01) ==
PROVIDERS: Emergency Provider Emergency Medicine; Visit Provider Emergency Medicine
DX: R10.13 Epigastric pain (principal); R19.7 Diarrhea, unspecified
CPT/HCPCS: 80053; 83690; 85025; 96360; 96361; 96372; 99283; J7030; A4216

== ENCOUNTER 2022-06-10 12:24 | Emergency (ER) | payer OTHER, SELFPAY ==
[2022-06-10 12:25] VITALS: BP 157/110; PULSE 65; RESP 14; TEMP 36.1; O2SAT 98; BMI 40.3
--- NOTE | 2022-06-10 12:39 | EKG12_ITS ---
Test Reason : Blood Pressure : / mmHG Vent. Rate : 065 BPM Atrial Rate : 065 BPM P-R Int : 160 ms QRS Dur : 096 ms QT Int : 410 ms P-R-T Axes : 031 031 011 degrees QTc Int : 426 ms Normal sinus rhythm with sinus arrhythmia Normal ECG Confirmed by MAR MARTINEZ, ANJEL ([id number]), continuity editor SUSIE WILSON ([id number]) on 06/11/2022 2:48:20 PM Referred By: AR Confirmed By:SAVANNA MANUEL MD
--- NOTE | 2022-06-10 12:40 | EDS_ITS ---
HPI History of Present Illness Chief Complaint: Rash Informant: patient Narrative Narrative: Presents with pain and burning to the back of bilateral hand worsen since yesterday. At work using a caustic substance decrease there, he would spray it from bottle he did not scrub. There was no gloves. He states there initial mild irritation yesterday irritation to the proximal dorsal phalanx however overnight moved up his hand. 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 He denies chest pains or palpitations. He states running under cold water helps. He does not take any oral medications. States mild similar symptom in the past however not this significant. [facility] Medical History Acute bronchitis, unspecified Contact with and (suspected) exposure to other viral communicable diseases Knee pain URI (upper respiratory infection) Home Medications prednisone 10 mg tablet 10 mg PO BID #10 tabs 04/22/22 [Rx Last Taken Unknown] amoxicillin 875 mg-potassium clavulanate 125 mg tablet 1 tab PO BID #20 tabs 04/28/22 [Rx Last Taken Unknown] Allergy/AdvReac Type Severity Reaction Status Date / Time No Known Allergies Allergy Verified 06/10/22 12:25 Family History Other Diabetes Heart disease Social History Smoking Status: Never smoker ROS ROS ED Constitutional Constitutional ED: Denies chills, fever(s) or sweats Eyes Eyes: Denies change in vision ENT ENT ED: Denies dysphagia or sore throat Cardiovascular Cardiovascular: Denies chest pain, leg edema, palpitations or racing heartbeat Respiratory/Chest Respiratory/Chest: Denies cough, dyspnea or dyspnea on exertion Gastrointestinal Gastrointestinal: Denies abdominal pain, diarrhea, nausea or vomiting Genitourinary Genitourinary ED: Denies dysuria, hematuria or urinary frequency Musculoskeletal Musculoskeletal: Denies back pain, extremity pain or neck pain Integumentary Reports rash; Denies wounds Neurologic Neurologic: Denies headache(s), paresthesias or weakness EXAM Physical Exam Const Vital Signs: 06/10/22 12:25 Temperature 97 F L Temperature Source Temporal Pulse Rate 65 Respiratory Rate 14 Blood Pressure 157/110 H Blood Pressure Mean 125 Pulse Ox 98 Oxygen Delivery Method Room Air Positive well nourished and well developed General Appearance ED: well developed and NAD HEENT Reports moist mucous membranes normocephalic and atraumatic Eyes PERRL, EOMs intact bilaterally and conjunctivae normal General Eye ED: Yes normal appearance of both eyes Neck no lymphadenopathy and supple General: Negative for tenderness Chest Wall Chest: Negative for tenderness Resp normal respiratory effort and normal air movement Effort and Inspection: symmetric chest movement; Negative for respiratory distress Cardio regular rate, regular rhythm and no murmurs Peripheral Pulses: pulses 2+ throughout GI normal to inspection, nondistended, normoactive bowel sounds and non-tender Palpation: Negative for guarding or rebound tenderness present Back/Spine no CVA tenderness and no thoracic nor lumbar tenderness Extremity normal to inspection General Extremety ED: Negative for edema or tenderness General Extremity: Negative for edema Neuro oriented x3 and no sensory deficits noted Sensorium / Orientation: awake and alert Skin Skin Narrative: Bilateral dorsal hands erythema distal dorsal hands proximal phalanxes digits 2 through 5 bilaterally. Tender to palpation no drainage. No indurations or fluctuance. Palms had erythema however no pain. No streaking up the arm. MDM MDM MDM Narrative Medical decision making narrative: Patient history concern for chemical dermatitis. He had pictures of the label as decreased there however no ingredients. Commercial substance, as he is getting the information from his boss, I will check electrolytes and EKG. We will treat with Motrin. I will have nurse dress the erythema with Xeroform dressing to help with comfort. Differential chemical dermatitis, possible electrolyte abnormalities. EKG normal electrolytes normal. I did reach out to poison control who pulled up the data with me who reviewed it, there is no hydrofluoric acid noted. Discussed chemical irritation isolated skin there is no GI or respiratory involvement no eye involvement. We will treat as a first-degree burn. Agrees w ith dressing care. They recommended cleaning thoroughly with soap if he has not. He has confirmed that he did this initially. He was feeling better with the dressing. Work restrictions were given. He will continue ibuprofen as needed. He will discuss with employer was recommended protective gear for this chemical exposure. He is to follow-up with now clinic. All questions were answered. Lab Data Attestation: I reviewed the patient's lab results. Labs: Laboratory Results - last 24 hr 06/10/22 13:00 Sodium 138 Potassium 3.9 Chloride 106 Carbon Dioxide 26.0 Anion Gap 6 BUN 15 Creatinine 0.99 Estim Creat Clear Calc 117.26 Est GFR (MDRD) Af Amer 115 Est GFR (MDRD) Non-Af 95 BUN/Creatinine Ratio 15.2 Glucose 101 Calcium 9.2 Discharge Plan Triage Chief Complaint: Rash ED Provider: Edward Mercedes Dx/Rx/DC Orders Clinical Impression: Dermatitis, contact, from chemicals, Bilateral hand pain Instructions: ED Chemical Burn, Skin, ED Contact Dermatitis Prescriptions: No Action prednisone 10 mg tablet 10 mg PO BID Qty: 10 0RF amoxicillin-pot clavulanate 875-125 mg tablet 1 tab PO BID Qty: 20 0RF Primary Care Provider: Care Physician,No Primary Referrals: Care Physician,No Primary [Primary Care Provider] - Activity Restrictions/Additional Instructions: Continue ibuprofen 600 mg every 6 hours needed. Call or follow-up with [facility] for continued wound care. Discussed with ER employer that you need protective gear gloves goggles, mask and protective clothing with the chemical that is being used. Disposition Disposition: Home, Self Care
[2022-06-10] MEDS: Ibuprofen 600 MG Tablet PO (12:47)
[2022-06-10 13:20] LABS: Anion Gap 6 (5-15); BUN 15 mg/dL (7-18); BUN/Creat Ratio 15.2 RATIO (10-20); Calcium,Total 9.2 mg/dL (8.5-10.1); Chloride 106 mmol/L (98-107); Creatinine, Serum 0.99 mg/dL (0.70-1.30); EST Glomerular Filtration Rate 95 mL/min (>60); Est Glom Filt Rate - Afr Amer 115 mL/min (>60); Estimated Creatinine Clearance 117.26 ml/min; Glucose 101 mg/dL (74-106); Potassium 3.9 mmol/L (3.5-5.1); Sodium Level 138 mmol/L (136-145)
== END 2022-06-10 13:41 | disposition home or self-care (01) ==
PROVIDERS: Emergency Provider Emergency Medicine; Visit Provider Emergency Medicine
DX: T23.161A Burn of first degree of back of right hand, initial encounter (principal); Z77.098 Contact with and (suspected) exposure to other hazardous, chiefly nonmedicinal, chemicals; T23.162A Burn of first degree of back of left hand, initial encounter
CPT/HCPCS: 36415; 80048; 93005; 99283